=== PATIENT | male | born 1955 | race Caucasian/White ===

== ENCOUNTER → 2018-08-04 | Outpatient (CLI) | payer BC ==
--- NOTE | 2018-08-04 15:46 | Diagnostic Imaging Report ---
INDICATION: Degenerative disc disease. COMPARISON: None. FINDINGS: Three views of the cervical column demonstrate normal alignment. There is no subluxation or fracture. Advanced degenerative changes are seen primarily at C4-C5, C5-C6, and C6-C7. There is no osseous lesion. Soft tissues are normal. IMPRESSION: Advanced degenerative changes. No traumatic malalignment or fracture. Dictated by: Dictated on workstation # [id number]
== END ==
LOC: RAD FS 15:28
PROVIDERS: ATTEND Nurse Practitioner Family
DX: M47.812 Spondylosis without myelopathy or radiculopathy, cervical region (principal); M50.10 Cervical disc disorder with radiculopathy, unspecified cervical region
CPT/HCPCS: 72040

== ENCOUNTER 2018-11-30 12:53 | Observation (INO) | payer BC ==
[~2018-11-30] VITALS: Ht 188 cm; Wt 117.0 kg
[2018-11-30] MEDS ORDERED: ACETAMINOPHEN 500 MG TAB (TYLENOL) ONE (13:20)
[2018-11-30] MEDS ORDERED: NS IV 1000 ML 1,000 ML IV SCH (13:30)
[2018-11-30] MEDS ORDERED: ACETAMINOPHEN 500 MG TAB (TYLENOL) PO ONE (13:30)
--- NOTE | 2018-11-30 13:33 | ED General ---
General Chief Complaint: Cardiac/General Problems Stated Complaint: DIZZINESS;HEART RACING Nursing Triage Note: pt went to Dr. Quiles today for a check up and he sent him to the ER after doing an EKG. States his heart rate is elevated. Pt is nauseated and has vomited. Pt also has a fever of 101. Pt claims he has a headache Nursing Sepsis Screen: No Definite Risk Source of Information: Patient Exam Limitations: No Limitations History of Present Illness Date Seen by Provider: Nov 30, 2018 Time Seen by Provider: 13:28 Initial Comments This 61-year-old white male presents with fever nausea and vomiting and headache that he has had today. He was seen in his doctor's office and Dr. Quiles sensation to the emergency department for further evaluation. Allergies and Home Medications Allergies Coded Allergies: No Known Drug Allergies (Unverified , 11/30/18) Patient Home Medication List Home Medication List Reviewed: Yes Review of Systems Review of Systems Constitutional: fever, malaise, weakness EENTM: no symptoms reported Respiratory: No cough Cardiovascular: No chest pain Gastrointestinal: No abdominal pain, No diarrhea; nausea, vomiting Genitourinary: No dysuria, No frequency Musculoskeletal: No back pain Skin: No rash Psychiatric/Neurological: No Symptoms Reported Hematologic/Lymphatic: No Symptoms Reported Immunological/Allergic: no symptoms reported Past Hpznucc-Dohicl-Fvhwtx Hx Past Med/Social Hx: Reviewed Nursing Past Med/Soc Hx Patient Social History Recent Foreign Travel: No Contact w/Someone Who Travel: No Recent Infectious Disease Expo: No Physical Exam Vital Signs Vital Signs - First Documented 11/30/18 13:15 Temp 101.0 Pulse 142 Resp 20 B/P (MAP) 146/102 (117) Pulse Ox 97 O2 Delivery Room Air Capillary Refill : Less Than 3 Seconds Height, Weight, BMI Height: 6'2.00" Weight: 260lbs. oz. 117.978706ba; BMI Method:Estimated General Appearance: No Apparent Distress, WD/WN Eyes: Bilateral Eye Normal Inspection HEENT: PERRL/EOMI, Normal ENT Inspection Neck: Normal Inspection Respiratory: Lungs Clear Cardiovascular: Regular Rate, Rhythm Gastrointestinal: Normal Bowel Sounds, Non Tender, Soft Back: Normal Inspection Extremity: Normal Inspection, Normal Range of Motion, Non Tender Neurologic/Psychiatric: Oriented x3, No Motor/Sensory Deficits, Normal Mood/Affect Skin: Normal Color, Warm/Dry; No Rash Focused Exam Lactate Level 11/30/18 13:25: Lactic Acid Level 1.67 Lactic Acid Level Laboratory Tests Test 11/30/18 13:25 Lactic Acid Level 1.67 MMOL/L (0.50-2.00) Progress/Results/Core Measures Suspected Sepsis Recent Fever Within 48 Hours: No Infection Criteria Present: None New/Unexplained Altered Menta: No Sepsis Screen: No Definite Risk SIRS Temperature:101.0 Pulse: 142 Respiratory Rate: 20 Laboratory Tests 11/30/18 13:23: White Blood Count 18.9H Blood Pressure 146 /102 Mean: 117 11/30/18 13:25: Lactic Acid Level 1.67 Laboratory Tests 11/30/18 13:23: Creatinine 1.20, Platelet Count 216, Total Bilirubin 1.1H Results/Orders Lab Results Laboratory Tests Test 11/30/18 13:23 11/30/18 13:25 11/30/18 13:50 Range/Units White Blood Count 18.9 H 4.3-11.0 10^3/uL Red Blood Count 4.54 4.35-5.85 10^6/uL Hemoglobin 15.3 13.3-17.7 G/DL Hematocrit 44 40-54 % Mean Corpuscular Volume 97 80-99 FL Mean Corpuscular Hemoglobin 34 25-34 PG Mean Corpuscular Hemoglobin Concent 35 32-36 G/DL Red Cell Distribution Width 14.6 H 10.0-14.5 % Platelet Count 216 130-400 10^3/uL Mean Platelet Volume 9.4 7.4-10.4 FL Neutrophils (%) (Auto) 89 H 42-75 % Lymphocytes (%) (Auto) 4 L 12-44 % Monocytes (%) (Auto) 7 0-12 % Eosinophils (%) (Auto) 0 0-10 % Basophils (%) (Auto) 0 0-10 % Neutrophils # (Auto) 16.8 H 1.8-7.8 X 10^3 Lymphocytes # (Auto) 0.7 L 1.0-4.0 X 10^3 Monocytes # (Auto) 1.4 H 0.0-1.0 X 10^3 Eosinophils # (Auto) 0.0 0.0-0.3 10^3/uL Basophils # (Auto) 0.0 0.0-0.1 10^3/uL Neutrophils % (Manual) 88 % Lymphocytes % (Manual) 3 % Monocytes % (Manual) 5 % Eosinophils % (Manual) 0 % Basophils % (Manual) 0 % Band Neutrophils 4 % Blood Morphology Comment NORMAL Sodium Level 134 L 135-145 MMOL/L Potassium Level 3.9 3.6-5.0 MMOL/L Chloride Level 101 98-107 MMOL/L Carbon Dioxide Level 20 L 21-32 MMOL/L Anion Gap 13 5-14 MMOL/L Blood Urea Nitrogen 22 H 7-18 MG/DL Creatinine 1.20 0.60-1.30 MG/DL Estimat Glomerular Filtration Rate > 60 BUN/Creatinine Ratio 18 Glucose Level 192 H 70-105 MG/DL Calcium Level 9.5 8.5-10.1 MG/DL Corrected Calcium 9.3 8.5-10.1 MG/DL Total Bilirubin 1.1 H 0.1-1.0 MG/DL Aspartate Amino Transf (AST/SGOT) 16 5-34 U/L Alanine Aminotransferase (ALT/SGPT) 40 0-55 U/L Alkaline Phosphatase 63 40-136 U/L Total Protein 7.8 6.4-8.2 GM/DL Albumin 4.3 3.2-4.5 GM/DL Lactic Acid Level 1.67 0.50-2.00 MMOL/L Urine Color YELLOW Urine Clarity CLEAR Urine pH 5 5-9 Urine Specific [place] 1.010 L 1.016-1.022 Urine Protein NEGATIVE NEGATIVE Urine Glucose (UA) 4+ H NEGATIVE Urine Ketones 2+ H NEGATIVE Urine Nitrite NEGATIVE NEGATIVE Urine Bilirubin NEGATIVE NEGATIVE Urine Urobilinogen NORMAL NORMAL MG/DL Urine Leukocyte Esterase NEGATIVE NEGATIVE Urine RBC (Auto) NEGATIVE NEGATIVE Urine RBC NONE /HPF Urine WBC NONE /HPF Urine Squamous Epithelial Cells RARE /HPF Urine Crystals NONE /LPF Urine Bacteria NEGATIVE /HPF Urine Casts NONE /LPF Urine Mucus NEGATIVE /LPF Urine Culture Indicated NO My Orders Orders - ERICA THAYER MD Cbc With Automated Diff (11/30/18 13:21) Comprehensive Metabolic Panel (11/30/18 13:21) Ua Culture If Indicated (11/30/18 13:21) Ekg Tracing (11/30/18 13:21) Ns Iv 1000 Ml (Sodium Chloride 0.9%) (11/30/18 13:30) Ns Iv 1000 Ml (Sodium Chloride 0.9%) (11/30/18 13:30) Acetaminophen Tablet (Tylenol Tablet) (11/30/18 13:30) Acetaminophen Tablet (Tylenol Tablet) (11/30/18 13:20) Ondansetron Injection (Zofran Injectio (11/30/18 13:45) Manual Differential (11/30/18 13:23) Chest Pa/Lat (2 View) (11/30/18 13:21) Blood Culture (11/30/18 14:28) Lactic Acid Analyzer (11/30/18 14:28) Piperacillin/Tazobactam (Bulk) (Zosyn In (11/30/18 14:45) Medications Given in ED Current Medications Medications Dose Ordered Sig/Cristiana Route Start Time Stop Time Status Last Admin Dose Admin Acetaminophen 1,000 mg ONCE ONCE PO 11/30/18 13:30 11/30/18 13:31 DC 11/30/18 13:21 1,000 MG Ondansetron HCl 4 mg ONCE ONCE IVP 11/30/18 13:45 11/30/18 13:46 DC 11/30/18 13:45 4 MG Vital Signs/I&O 11/30/18 11/30/18 13:15 13:21 Temp 101.0 103.6 Pulse 142 Resp 20 B/P (MAP) 146/102 (117) Pulse Ox 97 O2 Delivery Room Air Capillary Refill : Less Than 3 Seconds Blood Pressure Mean: 117 Progress Note : Time: 14:48 Progress Note The patient's laboratory and radiographic evaluation demonstrated a clear chest x-ray. The patient's white count was elevated at 18,900. The patient's urinalysis was negative for leukocytes and nitrates. Next Patient was treated with IV fluids and Zofran. His relieved the patient's nausea. I discussed patient's presentation with Dr. Lama. Given the fact the patient is diabetic has a rather marked leukocytosis and tachycardia and was felt best to observe the patient in the hospital today. 4.5 g of Zosyn IV were given to the patient in the emergency department. Departure Communication (Admissions) Time/Spoke to Admitting Phy: 14:49 Dr. Lama. Impression Primary Impression: Fever Qualified Codes: R50.9 - Fever, unspecified Additional Impression: Leukocytosis Qualified Codes: D72.829 - Elevated white blood cell count, unspecified Disposition: 09 ADMITTED INPATIENT Condition: Improved Admissions Decision to Admit Reason: Admit from ER (General) Decision to Admit/Date: Nov 30, 2018 Time/Decision to Admit Time: 14:50 Departure-Patient Inst. Referrals: KI MONK APRN (PCP) Primary Care Physician ERICA THAYER MD Nov 30, 2018 13:33
[2018-11-30 13:37] LABS: BASOPHILS % (AUTO) 0 % (0-10); EOSINOPHILS % (AUTO) 0 % (0-10); HEMATOCRIT 44 % (40-54); HEMOGLOBIN 15.3 G/DL (13.3-17.7); LYMPHOCYTES # (AUTO) 0.7 X 10^3 (1.0-4.0); LYMPHOCYTES % (AUTO) 4 % (12-44); MEAN CORPUSCULAR HEMOGLOBIN 34 PG (25-34); MEAN CORPUSCULAR HGB CONC 35 G/DL (32-36); MEAN CORPUSCULAR VOLUME 97 FL (80-99); MEAN PLATELET VOLUME 9.4 FL (7.4-10.4); MONOCYTES # (AUTO) 1.4 X 10^3 (0.0-1.0); MONOCYTES % (AUTO) 7 % (0-12); NEUTROPHILS # (AUTO) 16.8 X 10^3 (1.8-7.8); NEUTROPHILS % (AUTO) 89 % (42-75); PLATELET COUNT 216 10^3/uL (130-400); RED CELL DISTRIBUTION WIDTH 14.6 % (10.0-14.5); WHITE BLOOD COUNT 18.9 10^3/uL (4.3-11.0)
[2018-11-30] MEDS ORDERED: ONDANSETRON 4 MG/2 ML (SDV) Z0FRAN IVP ONE (13:45)
[2018-11-30 13:53] LABS: ALANINE AMINOTRANSFERASE 40 U/L (0-55); ALBUMIN 4.3 GM/DL (3.2-4.5); ALKALINE PHOSPHATASE 63 U/L (40-136); BILIRUBIN,TOTAL 1.1 MG/DL (0.1-1.0); BUN/CREATININE RATIO 18; CALCIUM 9.5 MG/DL (8.5-10.1); CARBON DIOXIDE 20 MMOL/L (21-32); CHLORIDE 101 MMOL/L (98-107); GFR ESTIMATED > 60; GLUCOSE 192 MG/DL (70-105); POTASSIUM 3.9 MMOL/L (3.6-5.0); SODIUM 134 MMOL/L (135-145); TOTAL PROTEIN 7.8 GM/DL (6.4-8.2)
[2018-11-30 13:59] LABS: BAND NEUTROPHILS 4 %; BASOPHILS % (MANUAL) 0 %; EOSINOPHILS % (MANUAL) 0 %; LYMPHOCYTES % (MANUAL) 3 %; MONOCYTES % (MANUAL) 5 %; NEUTROPHILS % (MANUAL) 88 %
[2018-11-30 14:00] LABS: RBC MORPH NORMAL
[2018-11-30 14:06] LABS: BILIRUBIN,URINE NEGATIVE (NEGATIVE); CLARITY,URINE CLEAR; COLOR,URINE YELLOW; GLUCOSE, URINE (UA) 4+ (NEGATIVE); KETONES,URINE 2+ (NEGATIVE); LEUKOCYTE ESTERASE ,URINE NEGATIVE (NEGATIVE); NITRITE,URINE NEGATIVE (NEGATIVE); PH,URINE 5 (5-9); PROTEIN,URINE NEGATIVE (NEGATIVE); UROBILINOGEN,URINE NORMAL (NORMAL)
[2018-11-30 14:19] LABS: BACTERIA,URINE NEGATIVE /HPF; SQUAMOUS EPITHELIAL CELL,UR RARE /HPF
--- NOTE | 2018-11-30 14:21 | Diagnostic Imaging Report ---
INDICATION: Dizziness and vomiting. TIME OF EXAM: 2:02 PM COMPARISON: No prior studies are available for comparison. FINDINGS: The heart size is normal. The pulmonary vascularity is unremarkable. The lungs are clear. No infiltrate, effusion or pneumothorax is detected. IMPRESSION: No acute cardiopulmonary process is detected. Dictated by: Dictated on workstation # [id number]
[2018-11-30] MEDS: NS IV 1000 ML 1,000 ML IV SCH ×3 (14:45→22:53)
[2018-11-30] MEDS ORDERED: PIPERACILLIN/TAZOBACTAM (BULK) 4.5 GM in NS (IVPB) 100 ML IV ONE (14:45)
--- NOTE | 2018-11-30 16:00 | NUR ---
GAURI GEORGE admitted to room 415-1, with an admitting diagnosis of FEVER, TACHYCARDIA, VOMITING, on 11/30/18 from ER via W/C, accompanied by ER STAFF.GAURI GEORGE introduced to surroundings, call light, bed controls, phone, TV, temperature control, lights, meal times, smoking policy, visitor policy, side rail policy, bathrooms and showers. Patient Rights given to patient in the handbook. GAURI GEORGE verbalizes understanding that [facility] is not responsible for the loss or damage to any personal effects or valuables that are kept in the patients posession during their hospitalization. The following Patient Care Plans were discussed with the PT: Discharge Planning, CHEST DISCOMFORT, HYPERTHERMIA, HIGH RISK FL VOL DEFICIT. GAURI GEORGE verbalizes understanding of Interdisciplinary Patient Education. Patient and/or family were informed about the Rapid Response Team and its purpose. PT CAME FROM ER WITH IV IN AND IVFS -- THIS RN CHANGED FLUIDS TO IV PUMP TUBING AND SARTED IFS AT 125ML/HR PER ORDERS, NOTE THAT THIS RN GOT REPORT FROMICU MIRI GARCIA.
[2018-11-30 16:20] VITALS: BP 116/59
[2018-11-30 16:25] VITALS: BP 116/59
[2018-11-30] MEDS ORDERED: ONDANSETRON 4 MG/2 ML (SDV) Z0FRAN IVP PRN (16:30)
--- NOTE | 2018-11-30 17:39 | NUR ---
NOTE THAT LIST OF HOME MEDS ARE ON CAHRT -- PT VOICED HE TOOK HIS HOME MEDS THIS AM AT HOME
[2018-11-30 19:28] VITALS: BP 109/51
[2018-11-30] MEDS ORDERED: ACETAMINOPHEN 325 MG TABLET PO PRN (19:45)
[2018-11-30] MEDS ORDERED: IBUPROFEN 600 MG (MOTRIN) TAB PO PRN (19:45)
--- NOTE | 2018-11-30 19:46 | NUR ---
patients fever is at 101.2. contacted dr bueno. received orders for tylenol 650mg po q6h prn fever; ibuprofen 600 mg po q8h prn fever. TORBV
[2018-11-30] MEDS: PIPERACILLIN/TAZO 4.5 GM/NS 100 ML IV SCH ×2 (20:12)
--- OUTSIDE RECORDS SUMMARY | 2018-11-30 23:57 | XMS REPORT | Continuity of Care Document ---
Author Organization Unknown Address Unknown Phone Unavailable Allergies There is no data. Medications There is no data. Problems There is no data. Procedures There is no data. Results Test Result Range A1C - 11/17/18 08:17 HEMOGLOBIN A1c 6.6 % of total Hgb <5.7 Encounters ACCT No. Visit Date/Time Discharge Status Pt. Type Provider Facility Loc./Unit Complaint [id number] 11/28/2018 13:00:00 ACT Outpatient KI MONK [facility] [id number] 11/17/2018 08:00:00 Document Registration
[2018-12-01] VITALS: BP 118/67
--- OUTSIDE RECORDS SUMMARY | 2018-12-01 00:35 | XMS REPORT | Continuity of Care Document ---
Author Organization Unknown Address Unknown Phone Unavailable Allergies There is no data. Medications There is no data. Problems There is no data. Procedures There is no data. Results Test Result Range A1C - 11/17/18 08:17 HEMOGLOBIN A1c 6.6 % of total Hgb <5.7 Encounters ACCT No. Visit Date/Time Discharge Status Pt. Type Provider Facility Loc./Unit Complaint [id number] 11/28/2018 13:00:00 ACT Outpatient KI MON[facility] [id number] 11/17/2018 08:00:00 Document Registration
[2018-12-01 04:00] VITALS: BP 111/67
[2018-12-01] MEDS: PIPERACILLIN/TAZO 4.5 GM/NS 100 ML IV SCH ×2 (05:28)
[2018-12-01 06:50] LABS: BASOPHILS % (AUTO) 0 % (0-10); EOSINOPHILS % (AUTO) 0 % (0-10); HEMATOCRIT 42 % (40-54); HEMOGLOBIN 14.7 G/DL (13.3-17.7); LYMPHOCYTES % (AUTO) 10 % (12-44); MEAN CORPUSCULAR HEMOGLOBIN 34 PG (25-34); MEAN CORPUSCULAR HGB CONC 35 G/DL (32-36); MEAN CORPUSCULAR VOLUME 97 FL (80-99); MEAN PLATELET VOLUME 9.3 FL (7.4-10.4); MONOCYTES # (AUTO) 1.2 X 10^3 (0.0-1.0); MONOCYTES % (AUTO) 11 % (0-12); NEUTROPHILS # (AUTO) 8.1 X 10^3 (1.8-7.8); NEUTROPHILS % (AUTO) 79 % (42-75); PLATELET COUNT 183 10^3/uL (130-400); RED CELL DISTRIBUTION WIDTH 14.9 % (10.0-14.5); WHITE BLOOD COUNT 10.2 10^3/uL (4.3-11.0)
[2018-12-01 07:16] LABS: ALANINE AMINOTRANSFERASE 34 U/L (0-55); ALBUMIN 3.7 GM/DL (3.2-4.5); ALKALINE PHOSPHATASE 56 U/L (40-136); BUN/CREATININE RATIO 17; CALCIUM 8.9 MG/DL (8.5-10.1); CARBON DIOXIDE 21 MMOL/L (21-32); CHLORIDE 106 MMOL/L (98-107); CREATININE SERUM 0.86 MG/DL (0.60-1.30); GFR ESTIMATED > 60; GLUCOSE 126 MG/DL (70-105); POTASSIUM 3.8 MMOL/L (3.6-5.0); SODIUM 137 MMOL/L (135-145); TOTAL PROTEIN 6.6 GM/DL (6.4-8.2)
[2018-12-01] MEDS: NS IV 1000 ML 1,000 ML IV SCH ×3 (07:23→08:36)
--- NOTE | 2018-12-01 07:52 | Diagnostic Imaging Report ---
INDICATION: Tachycardia and fever. TECHNIQUE: Single frontal view of the chest. COMPARISON: 11/30/2018. FINDINGS: Lung volumes are slightly decreased. No focal consolidation is seen. There is no pleural effusion or pneumothorax. The cardiac silhouette is normal in size. An azygos fissure is noted. IMPRESSION: Slightly decreased lung volumes with no acute pulmonary abnormality seen. Dictated by: Dictated on workstation # [id number]
[2018-12-01 08:00] VITALS: BP 114/74
[2018-12-01] MEDS ORDERED: METF500T8 PO ×2 (09:12)
[2018-12-01] MEDS ORDERED: ALLO300T2 PO ×2 (09:12)
[2018-12-01] MEDS ORDERED: NIAC500T24 PO ×2 (09:12)
[2018-12-01] MEDS ORDERED: PANT40TA3 PO ×2 (09:12)
[2018-12-01] MEDS ORDERED: ASPI-999 PO (09:12)
[2018-12-01] MEDS ORDERED: LISI10TA2 PO ×2 (09:12)
[2018-12-01] MEDS ORDERED: FLUT16SP22 NS (09:12)
[2018-12-01] MEDS ORDERED: GEMF600T8 PO ×2 (09:12)
[2018-12-01] MEDS ORDERED: OMG1KC PO ×2 (09:20)
[2018-12-01] MEDS ORDERED: FOLI0.8T PO ×2 (09:20)
[2018-12-01] MEDS ORDERED: CANA300T PO ×2 (09:20)
[2018-12-01] MEDS ORDERED: CHOL5000 PO ×2 (09:20)
[2018-12-01] MEDS ORDERED: ASPI-983 PO ×2 (09:20)
[2018-12-01] MEDS ORDERED: METH2.5T PO ×2 (09:20)
[2018-12-01] MEDS ORDERED: DICL100G31 TOP ×2 (09:24)
--- NOTE | 2018-12-01 09:25 | NUR ---
SPOKE WITH THE PATIENT ABOUT HIS MEDICATIONS. HE LISTED WHAT HE IS TAKING. I COMPARED IT WITH THE EXT MED HX WELL THE LIST ON THE CHART FROM HIS OFFICE. IN ADDITION TO WHAT IS SHOWN ON THE EXT MED HX BRANDTMARTHA GAMBLE FILLED: 11-18-18 METHOTREXATE 2.5MG( STATES HE TAKES 3 TABLETS ON SATURDAYS) 11-09-18 INVOKANA 300MG DAILY #30 HE STATES HE IS NO LONGER USING FLONASE. ALSO ON THE EXT MED HX WAS VOLTAREN GEL, I ADDED IT TO THE MED REC NEEDED SINCE IT WAS RECENTLY PICKED UP. HE TAKES THE FOLLOWING OTC: FISH OIL 4000MG DAILY NIACIN DAILY FOLIC ACID DAILY VITAMIN D 5,000 UNITS DAILY (NO LONGER TAKES THE PRESCRIPTION ONCE WEEKLY DOSE) ASPIRIN 81MG DAILY
--- NOTE | 2018-12-01 10:51 | Short Stay Summary ---
HPI History of Present Illness: 63 yo M that was sent over from cardiology office with fevers and nausea and vomiting that started in the last 24hrs. States that he has not been able to keep any food down since yesterday. Denies any other sick contacts. States that he has felt hot but denies any chills. No chest pain or shortness of breath. Source: patient, spouse Exam Limitations: no limitations Date seen by provider: Dec 01, 2018 Time Seen by Provider: 10:05 Attending Physician Silvano Lama MD [facility] [place] Consult Date of Admission Nov 30, 2018 at 14:35 Home Medications Home Medications Reviewed patient Home Medication Reconciliation performed by pharmacy medication reconciliations film laboratory technician and/or nursing. Patients Allergies have been reviewed. Allergies Coded Allergies: Fjdfxzp-Lwa-Kmq Reductase Inhibitor (Unverified Allergy, Mild, 11/30/18) MUSCLE CRAMPS TYZ-Lhmfzw-Iguykj Hx Patient Social History Living Status: Lives at home with Alcohol Use: Occasionally Uses Recreational Drug Use: No Smoking Status: Never a Smoker 2nd Hand Smoke Exposure: No Recent Foreign Travel: No Contact w/other who traveled: No Recent Hopitalizations: No Recent Infectious Disease Expo: No Physical Abuse Screen: No Sexual Abuse: No Past Medical History CAD HTN Family Medical History Significant Family History: No Pertinent Family Hx Review of Systems (CHC) Constitutional: No chills; fever, malaise EENTM: No blurred vision, No double vision, No mouth pain, No nose congestion, No throat pain Respiratory: no symptoms reported; No cough, No dyspnea on exertion, No short of breath Cardiovascular: no symptoms reported; No chest pain, No edema, No palpitations Gastrointestinal: abdominal pain; No constipation, No diarrhea; loss of appetite, nausea, vomiting Genitourinary: no symptoms reported; No dysuria, No frequency, No hematuria Musculoskeletal: no symptoms reported; No back pain, No joint pain, No joint swelling Skin: no symptoms reported; No lesions, No rash Psychiatric/Neurological: Headache Reviewed Test Results Reviewed Test Results Lab Laboratory Tests Test 11/30/18 13:23 11/30/18 13:25 11/30/18 13:50 12/01/18 05:59 Range/Units White Blood Count 18.9 H 10.2 4.3-11.0 10^3/uL Red Blood Count 4.54 4.33 L 4.35-5.85 10^6/uL Hemoglobin 15.3 14.7 13.3-17.7 G/DL Hematocrit 44 42 40-54 % Mean Corpuscular Volume 97 97 80-99 FL Mean Corpuscular Hemoglobin 34 34 25-34 PG Mean Corpuscular Hemoglobin Concent 35 35 32-36 G/DL Red Cell Distribution Width 14.6 H 14.9 H 10.0-14.5 % Platelet Count 216 183 130-400 10^3/uL Mean Platelet Volume 9.4 9.3 7.4-10.4 FL Neutrophils (%) (Auto) 89 H 79 H 42-75 % Lymphocytes (%) (Auto) 4 L 10 L 12-44 % Monocytes (%) (Auto) 7 11 0-12 % Eosinophils (%) (Auto) 0 0 0-10 % Basophils (%) (Auto) 0 0 0-10 % Neutrophils # (Auto) 16.8 H 8.1 H 1.8-7.8 X 10^3 Lymphocytes # (Auto) 0.7 L 1.0 1.0-4.0 X 10^3 Monocytes # (Auto) 1.4 H 1.2 H 0.0-1.0 X 10^3 Eosinophils # (Auto) 0.0 0.0 0.0-0.3 10^3/uL Basophils # (Auto) 0.0 0.0 0.0-0.1 10^3/uL Neutrophils % (Manual) 88 % Lymphocytes % (Manual) 3 % Monocytes % (Manual) 5 % Eosinophils % (Manual) 0 % Basophils % (Manual) 0 % Band Neutrophils 4 % Blood Morphology Comment NORMAL Sodium Level 134 L 137 135-145 MMOL/L Potassium Level 3.9 3.8 3.6-5.0 MMOL/L Chloride Level 101 106 98-107 MMOL/L Carbon Dioxide Level 20 L 21 21-32 MMOL/L Anion Gap 13 10 5-14 MMOL/L Blood Urea Nitrogen 22 H 15 7-18 MG/DL Creatinine 1.20 0.86 0.60-1.30 MG/DL Estimat Glomerular Filtration Rate > 60 > 60 BUN/Creatinine Ratio 18 17 Glucose Level 192 H 126 H 70-105 MG/DL Calcium Level 9.5 8.9 8.5-10.1 MG/DL Corrected Calcium 9.3 9.1 8.5-10.1 MG/DL Total Bilirubin 1.1 H 1.0 0.1-1.0 MG/DL Aspartate Amino Transf (AST/SGOT) 16 19 5-34 U/L Alanine Aminotransferase (ALT/SGPT) 40 34 0-55 U/L Alkaline Phosphatase 63 56 40-136 U/L Total Protein 7.8 6.6 6.4-8.2 GM/DL Albumin 4.3 3.7 3.2-4.5 GM/DL Lactic Acid Level 1.67 0.50-2.00 MMOL/L Urine Color YELLOW Urine Clarity CLEAR Urine pH 5 5-9 Urine Specific [place] 1.010 L 1.016-1.022 Urine Protein NEGATIVE NEGATIVE Urine Glucose (UA) 4+ H NEGATIVE Urine Ketones 2+ H NEGATIVE Urine Nitrite NEGATIVE NEGATIVE Urine Bilirubin NEGATIVE NEGATIVE Urine Urobilinogen NORMAL NORMAL MG/DL Urine Leukocyte Esterase NEGATIVE NEGATIVE Urine RBC (Auto) NEGATIVE NEGATIVE Urine RBC NONE /HPF Urine WBC NONE /HPF Urine Squamous Epithelial Cells RARE /HPF Urine Crystals NONE /LPF Urine Bacteria NEGATIVE /HPF Urine Casts NONE /LPF Urine Mucus NEGATIVE /LPF Urine Culture Indicated NO Physical Exam-(CHC) Physical Exam Vital Signs VS - Last 72 Hours, by Label 11/30/18 11/30/18 11/30/18 11/30/18 13:15 13:21 15:55 16:00 Temp 101.0 103.6 101.0 Pulse 142 108 Resp 20 16 B/P (MAP) 146/102 (117) 103/67 (79) Pulse Ox 97 93 96 O2 Delivery Room Air Room Air Room Air 11/30/18 11/30/18 11/30/18 11/30/18 16:20 16:25 18:49 19:28 Temp 98.4 98.4 99.4 101.2 Pulse 100 100 106 Resp 16 16 20 B/P (MAP) 116/59 (78) 116/59 109/51 (70) Pulse Ox 98 98 95 O2 Delivery Room Air Room Air Room Air 11/30/18 11/30/18 11/30/18 12/01/18 20:00 20:11 20:41 00:00 Temp 101.2 99.3 99.6 Pulse 96 Resp 16 B/P (MAP) 118/67 (84) Pulse Ox 95 95 O2 Delivery Room Air Room Air 12/01/18 12/01/18 04:00 08:00 Temp 99.0 98.0 Pulse 94 93 Resp 18 18 B/P (MAP) 111/67 (82) 114/74 (87) Pulse Ox 95 94 O2 Delivery Room Air Room Air Capillary Refill : Less Than 3 Seconds General Appearance: WD/WN, no apparent distress HEENT: PERRL/EOMI Neck: non-tender, full range of motion, supple Respiratory: chest non-tender, lungs clear, normal breath sounds, no respiratory distress, no accessory muscle use Cardiovascular: normal peripheral pulses, regular rate, rhythm, no edema, no murmur Gastrointestinal: normal bowel sounds, non tender, soft, no organomegaly Back: normal inspection, no CVA tenderness Extremities: normal range of motion, non-tender, normal inspection, no pedal edema, no calf tenderness, normal capillary refill Neurologic/Psychiatric: government services professional II-XII nml as tested, no motor/sensory deficits, alert, normal mood/affect, oriented x 3 Skin: normal color, warm/dry Lymphatic: no adenopathy Short Stay Diagnosis Discharge Diagnosis-Short Stay Admission Diagnosis See Problem list Final Discharge Diagnosis See Problem list Conclusion Plan See Problem list Was the Problem List Reviewed?: Yes Clinical Quality Measures DVT/VTE Risk/Contraindication: Risk Factor Score Per Nursin RFS Level Per Nursing on Admit: 2=Moderate Copy Copies To 1: Nini AVILA APRN Assessment/Plan Assessment/Plan Admission Status: Observation (1) Gastroenteritis Status: Acute Assessment & Plan: - Patient feeling much better after IVFs, tolerating PO diet, Desires to go home (2) Nausea & vomiting Status: Resolved (3) Head ache Status: Resolved Qualifiers: Qualified Codes: R51 - Headache (4) Dehydration Status: Acute Assessment & Plan: - BUN and Cr improved with IVFs SILVANO LAMA MD Dec 01, 2018 10:50
[2018-12-01] MEDS ORDERED: METR500T PO ×2 (10:53)
[2018-12-01] MEDS ORDERED: CIPR-225 PO ×2 (10:53)
--- NOTE | 2018-12-01 10:55 | Discharge Instructions ---
[facility]charge [facility] Reconcile Patient Problems Problems Reviewed?: Yes Discharge Medications New, Converted or Re-Newed RX: Transmitted to Pharmacy New Medications: Ciprofloxacin HCl (Cipro) 500 Mg Tablet 500 MG PO BID for 5 Days, #10 TAB Metronidazole (Flagyl) 500 Mg Tablet 500 MG PO BID for 5 Days, #10 TAB Continued Medications: Allopurinol (Allopurinol) 300 Mg Tablet 300 MG PO DAILY, TAB Aspirin (Aspirin EC) 81 Mg Tablet.dr 81 MG PO DAILY, TAB Canagliflozin (Invokana) 300 Mg Tablet 300 MG PO DAILY, TAB Cholecalciferol (Vitamin D3) (Vitamin D3) 5,000 Unit Capsule 5000 UNIT PO DAILY, CAP Diclofenac Sodium (Diclofenac Sodium) 100 Gm Gel..gram. TOP UD PRN for JOINT PAIN, EA Folic Acid (Folic Acid) 0.8 Mg Tablet 0.8 MG PO DAILY, TAB Gemfibrozil (Gemfibrozil) 600 Mg Tablet 1200 MG PO DAILY, TAB TAKES 2 (600MG) TABLETS Lisinopril (Lisinopril) 10 Mg Tablet 10 MG PO DAILY, TAB Metformin HCl (Metformin HCl ER) 500 Mg Tab.er.24h 1000 MG PO BID, TAB TAKES 2 (500MG) TABLETS Methotrexate Sodium (Methotrexate) 2.5 Mg Tablet 7.5 MG PO Sa, TAB TAKES 3 (2.5MG) TABLETS Niacinamide (Niacin) 500 Mg Tablet 500 MG PO DAILY, TAB Lolita 3 Polyunsat Fatty Acids (Fish Oil 1,000 mg Capsule) 1,000 Mg Cap 4000 MG PO DAILY, CAP Pantoprazole Sodium (Pantoprazole Sodium) 40 Mg Tablet.dr 40 MG PO DAILY, TAB Patient Instructions Goal/Follow Up Appt: You have a f.u with Nini Mackey APRN on Tuesday @ 940 AM for hospital f.u Patient Instructions: - Eat bland diet - Stay active Return to The Hospital For: - Fever or worsening abdominal pain Activity & Diet Discharge Diet: Other Diet ([place] diet and advance as tolerated) Activity as Tolerated: Yes Orders-Post D/C & Referrals Pneu Vac Indicated: Yes Copy Copies To 1: Nini AVILA APRN GAULT, HOLLY R MD Dec 01, 2018 10:55
[2018-12-01 12:00] VITALS: BP 122/83
[2018-12-01 12:16] VITALS: BP 114/74
[2018-12-01] MEDS ORDERED: SULF1TAB35 PO (22:44)
== END 2018-12-01 10:51 | disposition home or self-care (01) ==
LOC: EDUNIT# 12:53 → ER 12:54 → 4TH 14:35 → UNDOADMOB 14:35 → 4TH 16:00 → UNDODISOB 12-01 12:15
PROVIDERS: ADMIT Family Medicine; ATTEND Family Medicine
DX: E86.0 Dehydration (principal); K52.9 Noninfective gastroenteritis and colitis, unspecified; R51 Headache; R50.9 Fever, unspecified; D72.829 Elevated white blood cell count, unspecified
CPT/HCPCS: 36415; 71045; 71046; 80053; 81000; 83605; 85007; 85025; 85027; 87040; 93005; 96361; 96365; 96375; G0378

== ENCOUNTER 2018-12-01 20:18 | Emergency (ER) | payer BC ==
[~2018-12-01] VITALS: Ht 188 cm; Wt 114.8 kg
[~2018-12-01 20:18] MED LIST: ALLO300T2 PO; ASPI-983 PO; ASPI-999 PO; CANA300T PO; CHOL5000 PO; CIPR-225 PO; DICL100G31 TOP; FLUT16SP22 NS; FOLI0.8T PO; GEMF600T8 PO; LISI10TA2 PO; METF500T8 PO; METH2.5T PO; METR500T PO; NIAC500T24 PO; OMG1KC PO; PANT40TA3 PO
[2018-12-01] MEDS ORDERED: TETANUS,DIPTH,PERTUSS P/F (BOOSTRIX) 0.5 ML VIAL IM ONE (21:00)
--- NOTE | 2018-12-01 21:08 | ED Integumentary General ---
General Chief Complaint: Skin/Wound Problems Stated Complaint: L TOE WOUND Source: patient, spouse Exam Limitations: no limitations History of Present Illness Date Seen by Provider: Dec 01, 2018 Time Seen by Provider: 20:47 Initial Comments Patient presents to ER by private conveyance with his spouse and chief complaint that he has been having some increasing pain in his left great toe so he took his shoe and sock off and discovered that it was discolored swollen and red with some ecchymotic appearance. He came to the ER yesterday with nausea vomiting fever chills and a white count of 18,000 and was admitted on antibiotics but his white count and fever went away and he could not determine any specific source of infection so they discharged him today on antibiotics with follow-up outpatient. Patient is diabetic but he says his blood sugars been running around 135 fasting. He is not having any fevers chills sweats nausea chest pain diarrhea constipation at this time. He says he does have a history of gout but is been several years and since that has bothered him. He has a history of coronary disease and stents but does not take blood thinners. No known incident that he injured his toe. Allergies and Home Medications Allergies Coded Allergies: Hlzegcc-Wib-Iam Reductase Inhibitor (Unverified Allergy, Mild, 11/30/18) MUSCLE CRAMPS Home Medications Allopurinol 300 Mg Tablet, 300 MG PO DAILY, (Reported) Aspirin 81 Mg Tablet.dr, 81 MG PO DAILY, (Reported) Canagliflozin 300 Mg Tablet, 300 MG PO DAILY, (Reported) Cholecalciferol (Vitamin D3) 5,000 Unit Capsule, 5,000 UNIT PO DAILY, (Reported) Ciprofloxacin HCl 500 Mg Tablet, 500 MG PO BID Prescribed by: SILVANO DUNHAM on 12/01/18 1053 Diclofenac Sodium 100 Gm Gel..gram., TOP UD PRN for JOINT PAIN, (Reported) Folic Acid 0.8 Mg Tablet, 0.8 MG PO DAILY, (Reported) Gemfibrozil 600 Mg Tablet, 1,200 MG PO DAILY, (Reported) TAKES 2 (600MG) TABLETS Lisinopril 10 Mg Tablet, 10 MG PO DAILY, (Reported) Metformin HCl 500 Mg Tab.er.24h, 1,000 MG PO BID, (Reported) TAKES 2 (500MG) TABLETS Methotrexate Sodium 2.5 Mg Tablet, 7.5 MG PO Sa, (Reported) TAKES 3 (2.5MG) TABLETS Metronidazole 500 Mg Tablet, 500 MG PO BID Prescribed by: SILVANO DUNHAM on 12/01/18 1053 Niacinamide 500 Mg Tablet, 500 MG PO DAILY, (Reported) [place] 3 Polyunsat Fatty Acids 1,000 Mg Cap, 4,000 MG PO DAILY, (Reported) Pantoprazole Sodium 40 Mg Tablet.dr, 40 MG PO DAILY, (Reported) Patient Home Medication List Home Medication List Reviewed: Yes Review of Systems Review of Systems Constitutional: No chills, No diaphoresis EENTM: No ear discharge, No ear pain Respiratory: No cough, No short of breath Cardiovascular: No chest pain, No edema Gastrointestinal: No abdominal pain, No nausea, No vomiting Genitourinary: No discharge, No dysuria Musculoskeletal: see HPI; No back pain; joint pain Skin: see HPI, change in color Psychiatric/Neurological: Denies Anxiety, Denies Depressed Past Ewcemiu-Bbzxfd-Zudzmn Hx Patient Social History Alcohol Use: Occasionally Uses Alcohol Beverage of Choice: Beer Recreational Drug Use: No Smoking Status: Never a Smoker 2nd Hand Smoke Exposure: No Recent Foreign Travel: No Contact w/Someone Who Travel: No Recent Hopitalizations: No Past Medical History Surgeries: Yes (4 heart stents) Coronary Stent Cardiac: Yes (4 heart stents ) Heart Attack Arthritis Endocrine: Yes Diabetes, Non-Insulin dep Physical Exam Vital Signs Vital Signs - First Documented 12/01/18 20:43 Temp 99.8 Pulse 100 Resp 18 B/P (MAP) 143/84 (103) Pulse Ox 96 Capillary Refill : General Appearance: WD/WN, no apparent distress HEENT: normal ENT inspection, pharynx normal Neck: non-tender, full range of motion, normal inspection Cardiovascular: normal peripheral pulses, regular rate, rhythm Respiratory: lungs clear, normal breath sounds, no respiratory distress, no accessory muscle use Gastrointestinal: normal bowel sounds, non tender, soft Extremities: normal inspection, no pedal edema Neurologic/Psychiatric: alert, normal mood/affect, oriented x 3 Skin: other (swollen left great toe with erythema and some blistering and ecchymosis on the pad) Progress/Results/Core Measures Results/Orders Lab Results Laboratory Tests Test 12/01/18 21:27 Range/Units White Blood Count 9.0 4.3-11.0 10^3/uL Red Blood Count 4.21 L 4.35-5.85 10^6/uL Hemoglobin 14.3 13.3-17.7 G/DL Hematocrit 41 40-54 % Mean Corpuscular Volume 97 80-99 FL Mean Corpuscular Hemoglobin 34 25-34 PG Mean Corpuscular Hemoglobin Concent 35 32-36 G/DL Red Cell Distribution Width 14.4 10.0-14.5 % Platelet Count 176 130-400 10^3/uL Mean Platelet Volume 9.3 7.4-10.4 FL Neutrophils (%) (Auto) 64 42-75 % Lymphocytes (%) (Auto) 23 12-44 % Monocytes (%) (Auto) 12 0-12 % Eosinophils (%) (Auto) 1 0-10 % Basophils (%) (Auto) 0 0-10 % Neutrophils # (Auto) 5.8 1.8-7.8 X 10^3 Lymphocytes # (Auto) 2.1 1.0-4.0 X 10^3 Monocytes # (Auto) 1.0 0.0-1.0 X 10^3 Eosinophils # (Auto) 0.1 0.0-0.3 10^3/uL Basophils # (Auto) 0.0 0.0-0.1 10^3/uL Sodium Level 136 135-145 MMOL/L Potassium Level 4.4 3.6-5.0 MMOL/L Chloride Level 105 98-107 MMOL/L Carbon Dioxide Level 18 L 21-32 MMOL/L Anion Gap 13 5-14 MMOL/L Blood Urea Nitrogen 16 7-18 MG/DL Creatinine 1.04 0.60-1.30 MG/DL Estimat Glomerular Filtration Rate > 60 BUN/Creatinine Ratio 15 Glucose Level 216 H 70-105 MG/DL Calcium Level 9.3 8.5-10.1 MG/DL Corrected Calcium 9.6 8.5-10.1 MG/DL Total Bilirubin 0.6 0.1-1.0 MG/DL Aspartate Amino Transf (AST/SGOT) 26 5-34 U/L Alanine Aminotransferase (ALT/SGPT) 34 0-55 U/L Alkaline Phosphatase 55 40-136 U/L Total Protein 7.3 6.4-8.2 GM/DL Albumin 3.6 3.2-4.5 GM/DL My Orders Orders - JOANNE IBARRA Cbc With Automated Diff (12/01/18 20:58) Comprehensive Metabolic Panel (12/01/18 20:58) Toe(S) (12/01/18 20:58) Dipht,Pertuss(Acell),Tet Adult (Boostrix (12/01/18 21:00) Medications Given in ED Current Medications Medications Dose Ordered Sig/Cristiana Route Start Time Stop Time Status Last Admin Dose Admin Diphtheria/ Tetanus/Acell Pertussis 0.5 ml ONCE ONCE IM 12/01/18 21:00 12/01/18 21:01 DC 12/01/18 21:29 0.5 ML Vital Signs/I&O 12/01/18 20:43 Temp 99.8 Pulse 100 Resp 18 B/P (MAP) 143/84 (103) Pulse Ox 96 Progress Progress Note : Time: 21:10 Progress Note Patient is not having any evidence of discomfort or sepsis at this time. He is on outpatient antibiotics. We'll obtain a basic set of labs and x-ray of the toes looking for osteomyelitis. Then plan to follow up with general surgery probably outpatient. Diagnostic Imaging Diagonstic Imaging: Xray Plain Films/CT/US/NM/MRI: other (toes) Comments NAME: GA[facility] REC#: [id number] PT STATUS: REG ER : 1955 PHYSICIAN: JOANNE IBARRA MD ADMIT DATE: 12/01/18/ER Draft Date of Exam:12/01/18 TOE(S) INDICATION: Pain and swelling of the left great toe. COMPARISON: None. EXAMINATION: Three radiographic views of the left great toe were obtained. FINDINGS: There is soft tissue swelling, greatest medially, overlying the inner phalangeal joint space. Underlying osseous structures are intact. Joint spaces are maintained. There is no radiographic evidence of acute fracture or dislocation. No unexpected radiopaque foreign body is seen. IMPRESSION: Soft tissue swelling, but no radiographic evidence of acute fracture or dislocation of the left great toe. Dictated on workstation # [id number] Dict: 12/01/182216 Trans: 12/01/182219 [facility] [id number] Interpreted by: ZURI SAAVEDRA MD Electronically signed by: Consults : Consulting Physician: BUTCH CONNELLY MD Consults Notes 2240: Discussed the case and x-ray and he agrees with changing the antibiotics from Cipro and Flagyl to Bactrim and following up outpatient in the clinic. Departure Impression Primary Impression: Cellulitis of toe of left foot Disposition: HOME, SELF-CARE Condition: Stable Departure-Patient Inst. Decision time for Depature: 22:42 Referrals: [facility] (PCP) Primary Care Physician KI MONK APRN (Family) Primary Care Physician BUTCH CONNELLY MD Patient Instructions: Cellulitis (Skin Infection), Adult (DC) Add. Discharge Instructions: Discontinue taking the ciprofloxacin and Flagyl. Start taking the Bactrim one tablet twice daily. Tuesday call Dr. Connelly's office and request an appointment to follow-up. If you begin to experience intractable nausea pain fever or other worrisome symptoms please return to the ER. All discharge instructions reviewed with patient and/or family. Voiced understanding. Scripts Sulfamethoxazole/Trimethoprim (Bactrim Ds Tablet) 1 Each Tablet 1 EACH PO BID for 10 Days, #20 TAB 0 Refills Prov: JOANNE IBARRA 12/01/18 JOANNE IBARRA Dec 01, 2018 21:08
[2018-12-01 21:35] LABS: BASOPHILS % (AUTO) 0 % (0-10); EOSINOPHILS # (AUTO) 0.1 10^3/uL (0.0-0.3); EOSINOPHILS % (AUTO) 1 % (0-10); HEMATOCRIT 41 % (40-54); HEMOGLOBIN 14.3 G/DL (13.3-17.7); LYMPHOCYTES # (AUTO) 2.1 X 10^3 (1.0-4.0); LYMPHOCYTES % (AUTO) 23 % (12-44); MEAN CORPUSCULAR HEMOGLOBIN 34 PG (25-34); MEAN CORPUSCULAR HGB CONC 35 G/DL (32-36); MEAN CORPUSCULAR VOLUME 97 FL (80-99); MEAN PLATELET VOLUME 9.3 FL (7.4-10.4); MONOCYTES % (AUTO) 12 % (0-12); NEUTROPHILS # (AUTO) 5.8 X 10^3 (1.8-7.8); NEUTROPHILS % (AUTO) 64 % (42-75); PLATELET COUNT 176 10^3/uL (130-400); RED CELL DISTRIBUTION WIDTH 14.4 % (10.0-14.5)
--- OUTSIDE RECORDS SUMMARY | 2018-12-01 21:37 | XMS REPORT | Continuity of Care Document ---
Author Organization Unknown Address Unknown Phone Unavailable Allergies There is no data. Medications There is no data. Problems There is no data. Procedures There is no data. Results Test Result Range A1C - 11/17/18 08:17 HEMOGLOBIN A1c 6.6 % of total Hgb <5.7 Encounters ACCT No. Visit Date/Time Discharge Status Pt. Type Provider Facility Loc./Unit Complaint [id number] 11/28/2018 13:00:00 11/28/2018 23:59:59 [facility] Outpatient KI MONK [facility] [id number] 11/17/2018 08:00:00 Document Registration
[2018-12-01 21:53] LABS: CARBON DIOXIDE 18 MMOL/L (21-32); CHLORIDE 105 MMOL/L (98-107); CREATININE SERUM 1.04 MG/DL (0.60-1.30); POTASSIUM 4.4 MMOL/L (3.6-5.0); SODIUM 136 MMOL/L (135-145)
[2018-12-01 21:54] LABS: ALANINE AMINOTRANSFERASE 34 U/L (0-55); ALBUMIN 3.6 GM/DL (3.2-4.5); ALKALINE PHOSPHATASE 55 U/L (40-136); BILIRUBIN,TOTAL 0.6 MG/DL (0.1-1.0); BUN/CREATININE RATIO 15; CALCIUM 9.3 MG/DL (8.5-10.1); GFR ESTIMATED > 60; GLUCOSE 216 MG/DL (70-105); TOTAL PROTEIN 7.3 GM/DL (6.4-8.2)
--- NOTE | 2018-12-01 22:21 | Diagnostic Imaging Report ---
INDICATION: Pain and swelling of the left great toe. COMPARISON: None. EXAMINATION: Three radiographic views of the left great toe were obtained. FINDINGS: There is soft tissue swelling, greatest medially, overlying the inner phalangeal joint space. Underlying osseous structures are intact. Joint spaces are maintained. There is no radiographic evidence of acute fracture or dislocation. No unexpected radiopaque foreign body is seen. IMPRESSION: Soft tissue swelling, but no radiographic evidence of acute fracture or dislocation of the left great toe. Dictated by: Dictated on workstation # [id number]
[2018-12-01] MEDS ORDERED: cefTRIAXone 1,000 MG IV (ROCEPHIN) VIAL ONE (22:39)
[2018-12-01] MEDS ORDERED: WATER (STERILE) FOR INJECTION 10 ML ONE (22:39)
[2018-12-01] MEDS ORDERED: SULF1TAB35 PO (22:44)
[2018-12-01] MEDS ORDERED: LIDOCAINE 1% INJ 20 ML 20 ML VIAL INJ ONE (22:45)
[2018-12-01] MEDS: cefTRIAXone 1,000 MG/2.86 ml vial (IM ONLY) IM ONE ×2 (22:50→22:56)
[2018-12-01 23:00] VITALS: BP 139/93
== END 2018-12-01 23:00 | disposition home or self-care (01) ==
LOC: EDUNIT# 20:18 → ER 20:19
DX: L03.116 Cellulitis of left lower limb (principal); E11.9 Type 2 diabetes mellitus without complications; I25.10 Atherosclerotic heart disease of native coronary artery without angina pectoris; I25.2 Old myocardial infarction; Z95.5 Presence of coronary angioplasty implant and graft; Z88.8 Allergy status to other drugs, medicaments and biological substances; Z79.82 Long term (current) use of aspirin; Z79.84 Long term (current) use of oral hypoglycemic drugs
CPT/HCPCS: 36415; 73660; 80053; 85025; 90715

== ENCOUNTER → 2018-12-08 | Outpatient (CLI) | payer BC ==
[~2018-12-08] MED LIST changes: +SULF1TAB35 PO
[2018-12-08 11:13] LABS: CALCIUM 9.7 MG/DL (8.5-10.1); CREATININE SERUM 1.27 MG/DL (0.60-1.30); POTASSIUM 4.9 MMOL/L (3.6-5.0)
== END ==
LOC: LAB FS 10:26
PROVIDERS: ATTEND Nurse Practitioner Family
DX: R25.2 Cramp and spasm (principal)
CPT/HCPCS: 36415; 80048

== ENCOUNTER → 2018-12-11 | Outpatient (CLI) | payer BC | LOC: WOUNDCARE 12:29 | PROVIDERS: ATTEND Surgery | DX: E11.621 Type 2 diabetes mellitus with foot ulcer (principal); E11.42 Type 2 diabetes mellitus with diabetic polyneuropathy; E11.52 Type 2 diabetes mellitus with diabetic peripheral angiopathy with gangrene; I70.262 Atherosclerosis of native arteries of extremities with gangrene, left leg; L97.522 Non-pressure chronic ulcer of other part of left foot with fat layer exposed; L03.116 Cellulitis of left lower limb | CPT/HCPCS: 11042; 36415; 80048 ==

== ENCOUNTER → 2018-12-22 | Outpatient (CLI) | payer BC | LOC: WOUNDCARE 09:30 | PROVIDERS: ATTEND Surgery | DX: E11.621 Type 2 diabetes mellitus with foot ulcer (principal); E11.52 Type 2 diabetes mellitus with diabetic peripheral angiopathy with gangrene; I96 Gangrene, not elsewhere classified; E11.42 Type 2 diabetes mellitus with diabetic polyneuropathy; L97.522 Non-pressure chronic ulcer of other part of left foot with fat layer exposed | CPT/HCPCS: 11042 ==

== ENCOUNTER → 2018-12-29 | Outpatient (CLI) | payer BC | LOC: WOUNDCARE 09:21 | PROVIDERS: ATTEND Surgery | DX: E11.621 Type 2 diabetes mellitus with foot ulcer (principal); E11.42 Type 2 diabetes mellitus with diabetic polyneuropathy; L97.522 Non-pressure chronic ulcer of other part of left foot with fat layer exposed; E11.52 Type 2 diabetes mellitus with diabetic peripheral angiopathy with gangrene; I96 Gangrene, not elsewhere classified | CPT/HCPCS: 11042 ==

== ENCOUNTER → 2019-01-05 | Outpatient (CLI) | payer BC | LOC: WOUNDCARE 09:27 | PROVIDERS: ATTEND Surgery | DX: E11.621 Type 2 diabetes mellitus with foot ulcer (principal); E11.42 Type 2 diabetes mellitus with diabetic polyneuropathy; L97.522 Non-pressure chronic ulcer of other part of left foot with fat layer exposed; E11.52 Type 2 diabetes mellitus with diabetic peripheral angiopathy with gangrene | CPT/HCPCS: 99213 ==

== ENCOUNTER → 2019-01-19 | Outpatient (CLI) | payer BC | LOC: WOUNDCARE 09:16 | PROVIDERS: ATTEND Surgery | DX: E11.621 Type 2 diabetes mellitus with foot ulcer (principal); E11.42 Type 2 diabetes mellitus with diabetic polyneuropathy; E11.52 Type 2 diabetes mellitus with diabetic peripheral angiopathy with gangrene; L97.522 Non-pressure chronic ulcer of other part of left foot with fat layer exposed; I96 Gangrene, not elsewhere classified | CPT/HCPCS: 11042 ==

== ENCOUNTER → 2019-01-26 | Outpatient (CLI) | payer BC | LOC: WOUNDCARE 09:30 | PROVIDERS: ATTEND Surgery | DX: E11.621 Type 2 diabetes mellitus with foot ulcer (principal); E11.42 Type 2 diabetes mellitus with diabetic polyneuropathy; E11.52 Type 2 diabetes mellitus with diabetic peripheral angiopathy with gangrene; L97.522 Non-pressure chronic ulcer of other part of left foot with fat layer exposed; I96 Gangrene, not elsewhere classified | CPT/HCPCS: 11042 ==

== ENCOUNTER → 2019-02-02 | Outpatient (CLI) | payer BC | LOC: WOUNDCARE 12:16 | PROVIDERS: ATTEND Nurse Practitioner | DX: E11.621 Type 2 diabetes mellitus with foot ulcer (principal); E11.42 Type 2 diabetes mellitus with diabetic polyneuropathy; E11.52 Type 2 diabetes mellitus with diabetic peripheral angiopathy with gangrene; L97.522 Non-pressure chronic ulcer of other part of left foot with fat layer exposed | CPT/HCPCS: 11042 ==

== ENCOUNTER → 2019-02-09 | Outpatient (CLI) | payer BC | LOC: WOUNDCARE 09:35 | PROVIDERS: ATTEND Surgery | DX: E11.621 Type 2 diabetes mellitus with foot ulcer (principal); E11.52 Type 2 diabetes mellitus with diabetic peripheral angiopathy with gangrene; E11.42 Type 2 diabetes mellitus with diabetic polyneuropathy; L97.522 Non-pressure chronic ulcer of other part of left foot with fat layer exposed; L92.8 Other granulomatous disorders of the skin and subcutaneous tissue; I96 Gangrene, not elsewhere classified | CPT/HCPCS: 17250 ==

== ENCOUNTER → 2019-02-16 | Outpatient (CLI) | payer BC | LOC: WOUNDCARE 09:16 | PROVIDERS: ATTEND Surgery | DX: L92.8 Other granulomatous disorders of the skin and subcutaneous tissue (principal); E11.621 Type 2 diabetes mellitus with foot ulcer; E11.42 Type 2 diabetes mellitus with diabetic polyneuropathy; L97.522 Non-pressure chronic ulcer of other part of left foot with fat layer exposed | CPT/HCPCS: 99212 ==

== ENCOUNTER → 2019-03-02 | Outpatient (CLI) | payer BC | LOC: WOUNDCARE 09:20 | PROVIDERS: ATTEND Surgery | DX: E11.621 Type 2 diabetes mellitus with foot ulcer (principal); E11.42 Type 2 diabetes mellitus with diabetic polyneuropathy; E11.52 Type 2 diabetes mellitus with diabetic peripheral angiopathy with gangrene; L97.522 Non-pressure chronic ulcer of other part of left foot with fat layer exposed | CPT/HCPCS: 11042 ==

== ENCOUNTER → 2019-03-09 | Outpatient (CLI) | payer BC | LOC: WOUNDCARE 09:23 | PROVIDERS: ATTEND Surgery | DX: E11.621 Type 2 diabetes mellitus with foot ulcer (principal); E11.42 Type 2 diabetes mellitus with diabetic polyneuropathy; E11.52 Type 2 diabetes mellitus with diabetic peripheral angiopathy with gangrene; L97.522 Non-pressure chronic ulcer of other part of left foot with fat layer exposed | CPT/HCPCS: 11042 ==

== ENCOUNTER → 2019-03-16 | Outpatient (CLI) | payer BC | LOC: WOUNDCARE 09:18 | PROVIDERS: ATTEND Surgery | DX: E11.621 Type 2 diabetes mellitus with foot ulcer (principal); E11.42 Type 2 diabetes mellitus with diabetic polyneuropathy; E11.52 Type 2 diabetes mellitus with diabetic peripheral angiopathy with gangrene; L97.522 Non-pressure chronic ulcer of other part of left foot with fat layer exposed; I96 Gangrene, not elsewhere classified | CPT/HCPCS: 11042 ==

== ENCOUNTER → 2019-03-30 | Outpatient (CLI) | payer BC ==
[~2019-03-30] MED LIST changes: +METF500T19 PO; -METF500T8 PO
== END ==
LOC: WOUNDCARE 09:35
PROVIDERS: ATTEND Surgery
DX: E11.621 Type 2 diabetes mellitus with foot ulcer (principal); E11.42 Type 2 diabetes mellitus with diabetic polyneuropathy; L97.522 Non-pressure chronic ulcer of other part of left foot with fat layer exposed; E11.52 Type 2 diabetes mellitus with diabetic peripheral angiopathy with gangrene
CPT/HCPCS: 11042

== ENCOUNTER → 2019-04-06 | Outpatient (CLI) | payer BC ==
[~2019-04-06] MED LIST changes: -METF500T19 PO; +METF500T8 PO
== END ==
LOC: WOUNDCARE 08:19
PROVIDERS: ATTEND Surgery
DX: E11.621 Type 2 diabetes mellitus with foot ulcer (principal); E11.42 Type 2 diabetes mellitus with diabetic polyneuropathy; E11.52 Type 2 diabetes mellitus with diabetic peripheral angiopathy with gangrene; L97.522 Non-pressure chronic ulcer of other part of left foot with fat layer exposed
CPT/HCPCS: 11042

== ENCOUNTER → 2019-04-11 | Outpatient (CLI) | payer BC | LOC: WOUNDCARE 14:42 | PROVIDERS: ATTEND Surgery | DX: E11.621 Type 2 diabetes mellitus with foot ulcer (principal); E11.42 Type 2 diabetes mellitus with diabetic polyneuropathy; L97.522 Non-pressure chronic ulcer of other part of left foot with fat layer exposed; I96 Gangrene, not elsewhere classified | CPT/HCPCS: 99212 ==

== ENCOUNTER → 2019-04-30 | Outpatient (CLI) | payer BC, OTHER | LOC: WOUNDCARE 14:17 | PROVIDERS: ATTEND Preventive Medicine Undersea and Hyperbaric Medicine | DX: E11.621 Type 2 diabetes mellitus with foot ulcer (principal); E11.42 Type 2 diabetes mellitus with diabetic polyneuropathy; L97.522 Non-pressure chronic ulcer of other part of left foot with fat layer exposed | CPT/HCPCS: 11042 ==

== ENCOUNTER → 2019-05-14 | Outpatient (CLI) | payer OTHER ==
[~2019-05-14] MED LIST changes: +METF500T19 PO; -METF500T8 PO
== END ==
LOC: WOUNDCARE 13:57
PROVIDERS: ATTEND Preventive Medicine Undersea and Hyperbaric Medicine
DX: E11.621 Type 2 diabetes mellitus with foot ulcer (principal); E11.42 Type 2 diabetes mellitus with diabetic polyneuropathy; L97.522 Non-pressure chronic ulcer of other part of left foot with fat layer exposed
CPT/HCPCS: 99212

== ENCOUNTER → 2019-10-01 | Outpatient (CLI) | payer OTHER ==
[~2019-10-01] MED LIST changes: +METF-865 PO; -METF500T19 PO
== END ==
LOC: WOUNDCARE 12:58
PROVIDERS: ATTEND Surgery
DX: L84 Corns and callosities (principal); E11.42 Type 2 diabetes mellitus with diabetic polyneuropathy
CPT/HCPCS: 99213

== ENCOUNTER → 2020-01-17 | Outpatient (CLI) | payer OTHER ==
[~2020-01-17] MED LIST changes: +ASPI-1238 PO; -ASPI-983 PO; -PANT40TA3 PO; +PANT40TA52 PO
[2020-01-17 14:54] LABS: BASOPHILS # (AUTO) 0.1 10^3/uL (0.0-0.1); BASOPHILS % (AUTO) 1 % (0-10); EOSINOPHILS # (AUTO) 0.2 10^3/uL (0.0-0.3); EOSINOPHILS % (AUTO) 2 % (0-10); HEMATOCRIT 44 % (40-54); HEMOGLOBIN 15.3 g/dL (13.3-17.7); LYMPHOCYTES # (AUTO) 2.8 10^3/uL (1.0-4.0); LYMPHOCYTES % (AUTO) 30 % (12-44); MEAN CORPUSCULAR HEMOGLOBIN 32 pg (25-34); MEAN CORPUSCULAR HGB CONC 35 g/dL (32-36); MEAN CORPUSCULAR VOLUME 93 fL (80-99); MEAN PLATELET VOLUME 9.4 fL (9.0-12.2); MONOCYTES # (AUTO) 0.8 10^3/uL (0.0-1.0); MONOCYTES % (AUTO) 9 % (0-12); NEUTROPHILS # (AUTO) 5.3 10^3/uL (1.8-7.8); NEUTROPHILS % (AUTO) 57 % (42-75); PLATELET COUNT 216 10^3/uL (130-400); WHITE BLOOD COUNT 9.3 10^3/uL (4.3-11.0)
[2020-01-17 15:15] LABS: ALANINE AMINOTRANSFERASE 31 U/L (0-55); ALBUMIN 4.1 GM/DL (3.2-4.5); ALKALINE PHOSPHATASE 50 U/L (40-136); BILIRUBIN,TOTAL 0.6 MG/DL (0.1-1.0); BUN/CREATININE RATIO 26; CALCIUM 9.1 MG/DL (8.5-10.1); CARBON DIOXIDE 22 MMOL/L (21-32); CHLORIDE 102 MMOL/L (98-107); CREATININE SERUM 0.99 MG/DL (0.60-1.30); GFR ESTIMATED > 60; GLUCOSE 193 MG/DL (70-105); SODIUM 133 MMOL/L (135-145); TOTAL PROTEIN 7.5 GM/DL (6.4-8.2)
--- NOTE | 2020-01-17 15:15 | Diagnostic Imaging Report ---
Left foot at 2:52. Indication: Diabetic foot ulcer great toe. 3 views were obtained. The prior exam of 12/01/2018 failed to show any sign of an acute bony abnormality although there did appear to be soft tissue edema about the great toe. In the interval since the prior exam an area of ulceration has developed in the soft tissues along the medial aspect of the distal phalanx of the great toe. There is no sign of bony destruction in this area to suggest osteomyelitis. Even so, if clinical concern regarding osteomyelitis exists, MRI would be recommended for further study. There is no fracture or acute bony abnormality noted otherwise. The Lisfranc joint seems well maintained. The degenerative changes involving the midfoot seen previously are again visualized and no different. There is also a prominent calcaneal spur. Impression: 1. There is an area of ulceration in the soft tissues along the medial aspect of the distal phalanx of the great toe. There is no bony destruction to suggest osteomyelitis. However, MRI would be recommended for further evaluation if clinically indicated. 2. There is no acute bony abnormality noted otherwise. Dictated by: Dictated on workstation # [id number]
== END ==
LOC: LAB 14:31
PROVIDERS: ATTEND Surgery
DX: E11.621 Type 2 diabetes mellitus with foot ulcer (principal); L97.522 Non-pressure chronic ulcer of other part of left foot with fat layer exposed; I70.245 Atherosclerosis of native arteries of left leg with ulceration of other part of foot
CPT/HCPCS: 36415; 73630; 80053; 83036; 85025

== ENCOUNTER → 2020-01-17 | Outpatient (CLI) | payer OTHER | LOC: WOUNDCARE 12:48 | PROVIDERS: ATTEND Surgery | DX: E11.621 Type 2 diabetes mellitus with foot ulcer (principal); E11.42 Type 2 diabetes mellitus with diabetic polyneuropathy; L97.522 Non-pressure chronic ulcer of other part of left foot with fat layer exposed; I70.245 Atherosclerosis of native arteries of left leg with ulceration of other part of foot; L03.116 Cellulitis of left lower limb | CPT/HCPCS: 11042; 87070; 87075; 87077; 87186; 87205; A6260; G0463 ==

== ENCOUNTER → 2020-01-21 | Outpatient (CLI) | payer OTHER | LOC: WOUNDCARE 10:58 | PROVIDERS: ATTEND Surgery | DX: E11.621 Type 2 diabetes mellitus with foot ulcer (principal); E11.42 Type 2 diabetes mellitus with diabetic polyneuropathy; L97.522 Non-pressure chronic ulcer of other part of left foot with fat layer exposed; I70.245 Atherosclerosis of native arteries of left leg with ulceration of other part of foot | CPT/HCPCS: 11042; G0463 ==

== ENCOUNTER → 2020-01-29 | Outpatient (CLI) | payer OTHER | LOC: WOUNDCARE 13:30 | PROVIDERS: ATTEND Surgery | DX: E11.621 Type 2 diabetes mellitus with foot ulcer (principal); E11.42 Type 2 diabetes mellitus with diabetic polyneuropathy; L97.522 Non-pressure chronic ulcer of other part of left foot with fat layer exposed; I70.245 Atherosclerosis of native arteries of left leg with ulceration of other part of foot; E11.52 Type 2 diabetes mellitus with diabetic peripheral angiopathy with gangrene | CPT/HCPCS: 99212 ==

== ENCOUNTER → 2020-02-29 | Outpatient (CLI) | payer OTHER ==
--- NOTE | 2020-02-29 11:26 | Diagnostic Imaging Report ---
INDICATION: Right foot pain. Time of exam 10:30 a.m. Three views of the right foot were obtained. Metatarsals are intact. Phalanges appear intact. Midfoot and hindfoot are unremarkable. No fractures are seen. There are large posterior and plantar calcaneal spurs. IMPRESSION: Chronic changes. No acute bony abnormality is detected. Dictated by: Dictated on workstation # [id number]
== END ==
LOC: RAD FS 10:23
PROVIDERS: ATTEND Nurse Practitioner Family
DX: M79.671 Pain in right foot (principal)
CPT/HCPCS: 73630

== ENCOUNTER 2020-04-03 05:46 | Outpatient (RCR) | payer OTHER ==
[~2020-04-03] VITALS: Ht 187 cm; Wt 120.4 kg
== END 2020-04-03 16:02 | disposition home or self-care (01) ==
LOC: PREOP 05:46
PROVIDERS: ATTEND Surgery
DX: Z01.812 Encounter for preprocedural laboratory examination (principal); Z12.11 Encounter for screening for malignant neoplasm of colon; Z80.0 Family history of malignant neoplasm of digestive organs

== ENCOUNTER 2020-04-11 10:16 | Day surgery (SDC) | payer OTHER ==
[~2020-04-11] VITALS: Ht 187 cm; Wt 120.4 kg
[2020-04-11] VITALS (9 sets, daily range): BP systolic 114–132; BP diastolic 55–81
[2020-04-11] MEDS: LACTATED RINGERS 1,000 ML IV PRN ×2 (10:20→10:45)
[2020-04-11] MEDS ORDERED: LACTATED RINGERS 1,000 ML IV ONE (10:34)
[2020-04-11] MEDS ORDERED: LIDOCAINE JELLY 2% 6 ML SYRINGE MM PRN (10:45)
--- NOTE | 2020-04-11 10:57 | Conscious Sedation/ASA ---
Conscious Sedation Pre-Proced Time 10:30 ASA Score 2 For ASA 3 and 4: Consider anesthesia and medical clearance. Also, for patients with a history of failed moderate sedation consider anesthesia. Airway Lungs Heart ASA score ASA 1: a normal healthy patient ASA 2: a patient with a mild systemic disease (mid diabetes, controlled hypertension, obesity ASA 3: a patient with a severe systemic disease that limits activity (angina, COPD, prior Myocardial infarction) ASA 4: a patient with an incapacitating disease that is a constant threat to life (CHF, renal failure) ASA 5: a moribund patient not expected to survive 24 hrs. (ruptured aneurysm) ASA 6: a declared brain- patient whose organs are being harvested. For emergent operations, add the letter E after the classification Mallampati Classification Grade 2 Sedation Plan Analgesia, Amnesia, Plan communicated to team members, Discussed options with patient/fam, Discussed risks with patient/fam The patient is an appropriate candidate to undergo the planned procedure, sedation, and anesthesia. The patient immediately re-assessed prior to indication. BUTCH CHARLES MD Apr 11, 2020 10:57
--- NOTE | 2020-04-11 10:57 | Progress Note-Pre Operative ---
Pre-Operative Progress Note H&P Reviewed The H&P was reviewed, patient examined and no changes noted. Date Seen by Provider: Apr 11, 2020 Time Seen by Provider: 10:30 Date H&P Reviewed: Apr 11, 2020 Time H&P Reviewed: 10:30 Pre-Operative Diagnosis: family hx colon ca BUTCH CHARLES MD Apr 11, 2020 10:57
--- NOTE | 2020-04-11 10:58 | Discharge Inst-Surgical ---
D/C Lap Instructions-ARACELI Follow Up Activity as tolerated High Fiber Diet 25g or more per day Avoid Alcohol, Caffeine, Spicy [place] and Acid foods. Drink 64 fluid oz or more of fluids per day. Symptoms to Report: Fever over 101 degree F, Nausea/Vomiting If any problems/questions: Contact your physician or go to Emergency Room BUTCH CHARLES MD Apr 11, 2020 10:58
[2020-04-11] MEDS ORDERED: HYDROcodone/APAP 5 MG/325 MG (LORTAB) TAB PO PRN (11:00)
[2020-04-11] MEDS ORDERED: morphine INJ 10 MG/ML 1ML (SYR OR VIAL) IVP PRN ×2 (11:00)
[2020-04-11] MEDS ORDERED: ACETAMINOPHEN 325 MG TABLET PO PRN (11:00)
[2020-04-11] MEDS ORDERED: ONDANSETRON 4 MG/2 ML (SDV) Z0FRAN IVP PRN (11:00)
[2020-04-11] MEDS ORDERED: PROPOFOL INJECTION 50 ML IV ONE (11:14)
[2020-04-11] MEDS ORDERED: MIDAZOLAM 2 MG/2 ML (VERSED) VIAL ONE (11:14)
--- NOTE | 2020-04-11 12:42 | Progress Note-Post Operative ---
Post-Operative Progess Note Surgeon (s)/Investment Representative (s) Surgeon BUTCH CHARLES MD Investment Representative: none Pre-Operative Diagnosis family hx colon ca Post-Operative Diagnosis chronic stage 2 ext and int hemorrhoids, small rectal polyp(3mm) Procedure & Operative Findings Date of Procedure 04/11/20 Procedure Performed/Findings colonoscopy with bx. Anesthesia Type mac Estimated Blood Loss Estimated blood loss (mL): minimnal Specimens/Packing Specimens Removed rectal polyp BUTCH CHARLES MD Apr 11, 2020 12:42
--- NOTE | 2020-04-11 12:51 | Anesthesia-General Post-Op ---
MAC Patient Condition Mental Status/LOC: Same as Preop Cardiovascular: Satisfactory Nausea/Vomiting: Absent Respiratory: Satisfactory Pain: Controlled Complications: Absent Post Op Complications Complications None Follow Up Care/Instructions Patient Instructions None needed. Anesthesiology Discharge Order Discharge Order Patient is doing well, no complaints, stable vital signs, no apparent adverse anesthesia problems. HUMAIRA ZHU DO Apr 11, 2020 12:51
--- NOTE | 2020-04-11 20:35 | OPERATIVE REPORT ---
DATE OF SERVICE: 04/11/2020 ATTENDING PRIMARY [employer] HOME PARAPROFESSIONAL: Nini Mackey APRN. PREOPERATIVE DIAGNOSIS: Screening colonoscopy with family history of colon cancer. POSTOPERATIVE DIAGNOSES: Chronic stage II external and internal hemorrhoids, small polyp of the rectum approximately 2 to 3 mm in size. Remainder of the colon was normal. PROCEDURE: Colonoscopy with biopsy. SURGEON: Butch Charles MD ANESTHESIA: Monitored anesthesia care. ESTIMATED BLOOD LOSS: Minimal. FINDINGS: Chronic stage II external and internal hemorrhoids, small polyp of the rectum approximately 2 to 3 mm in size. Remainder of the colon was normal. DISPOSITION: The patient tolerated the procedure well. INDICATIONS: The patient is a 64-year-old male referred over to us for screening colonoscopy. His last colonoscopy was approximately 5 years ago and reports that this was normal. He does have a first-degree family history of colon cancer with the father, with his father being diagnosed with disease in his 60s. He states that he is otherwise doing well, does not report any major issues with diarrhea nor constipation as well as no red blood per rectum nor any dark tarry stools. DESCRIPTION OF PROCEDURE: The patient was brought to the endoscopy suite, laid in left lateral decubitus position. After adequate IV pain and sedative medications and monitored anesthesia care, a digital rectal examination was performed. Mild chronic stage II external and internal hemorrhoids were identified, which were not actively edematous nor inflamed and no bleeding. Normal sphincter tone was felt and no palpable masses. Prostate gland was palpable and appeared normal. The endoscope was then intubated to the anus and rectum gently insufflated. The endoscope was then advanced to the valves of Pérez of the rectum with no polyps or any neoplasms identified. We proceeded through the valves of Pérez rectum where small polyp along the superior valve identified, which was small, approximately 3 mm in size. This was biopsied and destroyed using forceps and electrocautery. The endoscope was then advanced through the sigmoid colon where no diverticulosis identified. We then proceeded through the remainder of the descending, transverse and ascending colon to the cecum. These segments were normal. No other lesions identified. The endoscope was then slowly withdrawn while taking a second look and suctioning of residual air with no additional findings. The patient tolerated the procedure well. We will recommend continued medical management with a high fiber diet with at least 30 grams of fiber daily as well as significant amounts of water to promote soft stools on a daily basis. We will also await the biopsy results and if there is no villous component to this polyp, we will then have him proceed with a followup colonoscopy approximately 5 years, otherwise in 3 years. Job ID: [id number] DocumentID: [id number] Dictated Date: 04/11/2020 12:14:17 Bone Worker Date: 04/11/2020 20:34:42 Dictated By: BUTCH CHARLES MD
== END 2020-04-11 13:13 | disposition home or self-care (01) ==
LOC: ENDO 10:16
PROVIDERS: ATTEND Surgery
DX: Z12.11 Encounter for screening for malignant neoplasm of colon (principal); K62.1 Rectal polyp; K21.9 Gastro-esophageal reflux disease without esophagitis; K64.1 Second degree hemorrhoids; I10 Essential (primary) hypertension; I25.10 Atherosclerotic heart disease of native coronary artery without angina pectoris; E11.9 Type 2 diabetes mellitus without complications; E78.00 Pure hypercholesterolemia, unspecified; Z95.5 Presence of coronary angioplasty implant and graft; M19.90 Unspecified osteoarthritis, unspecified site; Z79.84 Long term (current) use of oral hypoglycemic drugs; Z79.899 Other long term (current) drug therapy; Z79.82 Long term (current) use of aspirin; Z88.8 Allergy status to other drugs, medicaments and biological substances; Z80.0 Family history of malignant neoplasm of digestive organs
CPT/HCPCS: 82962; 88305

== ENCOUNTER 2020-05-13 08:18 | Outpatient (CLI) | payer OTHER ==
[~2020-05-13] VITALS: Ht 187.9 cm; Wt 115.9 kg
[2020-05-13 08:02] VITALS: BP 102/67
[2020-05-13] MEDS ORDERED: EPINEPHrine INJECTION 1 MG/ML AMP IM PRN (08:30)
[2020-05-13] MEDS ORDERED: diphenhydrAMINE 50 MG/ML INJ (BENADRYL) IV PRN (08:30)
[2020-05-13] MEDS ORDERED: BAMLANIVIMAB 700 MG in NS 200 ML IV ONE (08:30)
[2020-05-13 10:44] VITALS: BP 102/63
== END 2020-05-13 10:55 | disposition home or self-care (01) ==
LOC: INFUSION 08:18
PROVIDERS: ATTEND Emergency Medicine
DX: U07.1 COVID-19 (principal)